=== PATIENT | male | born 1965 | race Two or more races ===

== ENCOUNTER 2016-07-02 09:30 | Inpatient (IN) | payer OTHER ==
[~2016-07-02] VITALS: Ht 182.9 cm; Wt 67.1 kg
[2016-09-06] VITALS (23 sets, daily range): BP systolic 85–117; BP diastolic 46–69; PULSE 84–114; RESP 8–29; Ht 182.9 cm; Wt 67.1 kg
[2016-09-06] MEDS ORDERED: TRAM-40 PO (06:55)
[2016-09-06] MEDS ORDERED: ALBU18HF INHALATION (06:55)
[2016-09-06] MEDS ORDERED: RANI150T5 PO (06:55)
[2016-09-06] MEDS ORDERED: SERT100T PO (06:55)
[2016-09-06] MEDS ORDERED: GABA300C PO (06:55)
[2016-09-06] MEDS ORDERED: BEN25 PO (06:55)
[2016-09-06] MEDS ORDERED: CEFAZOLIN 1 GM INJ ONE ×3 (07:00→16:52)
[2016-09-06] MEDS ORDERED: ROCURONIUM 50 MG INJ ONE (07:00)
[2016-09-06] MEDS ORDERED: PROPOFOL 200 MG INJ ONE (07:00)
[2016-09-06] MEDS ORDERED: GELATIN SIZE 100 SPONGE ONE ×2 (07:35→15:37)
[2016-09-06] MEDS ORDERED: THROMBIN 5000 UNIT VIAL ONE ×2 (07:36→15:37)
[2016-09-06] MEDS ORDERED: POLYMYXIN/BACITRACIN 1L IRRIG ONE ×2 (07:36→20:54)
[2016-09-06] MEDS ORDERED: LIDOCAINE 0.5%/EPI (MDV) 50 ML INJ ONE ×2 (07:40→15:37)
[2016-09-06] MEDS ORDERED: CEFAZOLIN 2 GM/50 ML (PMX) 50 ML IVPB ONE (08:00)
[2016-09-06] MEDS ORDERED: NS + KCL 20 MEQ 1,000 ML IV ONE (08:00)
--- NOTE | 2016-09-06 10:59 | PREOPHP ---
DATE OF ADMISSION: 09/06/2016 HISTORY OF PRESENT ILLNESS: The patient is a 50-year-old male with complaints of chronic neck and l ow back pain greater than neck pain. The patient has had chronic pain for many years, but this has worsened over the past few years. He has tried multiple nonoperative therapy without improvement. Patient's MRI showed degenerative disk disease and spondylosis with transitional L5 vertebral body a nd a grade I to II spondylolisthesis with severe nnea-xo-fqvi degeneration and foraminal stenosis at L4-5. The patient also has some lateral recess stenosis at L2-3 and L3-4 levels. The patient repo rts numbness in his feet as well as some pain in his thigh, but predominantly has low back pain. He denies any saddle anesthesia. Denies any focal weakness. The patient also had some cervical radic ular symptoms and some neck pain, but states that this is less compared to his low back pain. PAST MEDICAL HISTORY: Significant for depression and left knee subluxation. Denies any history of diabetes, gastrointestinal issues, renal disease, cardiac disease or pulmonary disease. ALLERGIES: NO KNOWN DRUG ALLERGIES. PAST SURGICAL HISTORY: Significant for appendectomy at age 9. MEDICATIONS: Patient's medications include: 1. Gabapentin. 2. Loratadine. 3. Tramadol 4. Ranitidine. REVIEW OF SYSTEMS: A 12-point review of systems performed. Pertinent positives and negatives liste d in history of present illness or below. CONSTITUTIONAL: The patient denies any fevers, chills or weight loss. The patient had previously h ad some weight loss but this has stabilized. HEMATOLOGIC: Denies any history of easy bruising or bleeding. All other systems reviewed and are n egative. PHYSICAL EXAMINATION: VITAL SIGNS: The patient's temperature 98.7, pulse 84, respirations 18, blood pressure 101/69, satu rating 99% on room air. GENERAL: The patient is well-developed, well-nourished but thin male lying in the hospital bed in n o acute distress. HEAD AND NECK: Normocephalic, atraumatic. He has a slight left Spurling sign and does not have a L hermitte sign. CARDIAC: Regular rate and rhythm. LUNGS: Clear to auscultation. ABDOMEN: Nontender, nondistended, soft. EXTREMITIES: No clubbing, cyanosis, edema. MUSCULOSKELETAL: The patient has some lower lumbar and lower thoracic tenderness. He has normal to ne and bulk. MOTOR: 5/5 bilateral upper and lower extremities. NEUROLOGIC: The patient is awake, alert, and oriented x3, fluent speech, follows commands readily a nd appropriately. He has 2+ deep tendon reflexes except for patella is 1+. He has no clonus, Neida nski, or Kirstin sign. He has intact sensation to light touch and pinprick. He has a normal gait. He has a positive left sign. ASSESSMENT AND PLAN: A 50-year-old male with lumbar spondylosis and spondylolisthesis. I discussed the signs, symptoms, physical exam, radiographic findings with him. This patient is to go to the [facility] today for L4-5 decompression and stabilization and possible L2-3 and L3-4 laminectomy. Dictated By: PARVIZ LUNA MD, LG/EBONIE Conf#: [id number] DID#: [id number]
[2016-09-06] MEDS ORDERED: MIDAZOLAM 1 MG/ML 2 ML INJ ONE (15:23)
[2016-09-06] MEDS ORDERED: PHENYLephrine (100 MCG/ML) 5ML SYG ONE ×4 (16:12→17:24)
[2016-09-06] MEDS ORDERED: DEXAMETHASONE 4 MG/ML 1 ML INJ ONE (16:53)
[2016-09-06] MEDS ORDERED: ONDANSETRON 4 MG INJ ONE ×2 (16:53→21:33)
[2016-09-06] MEDS ORDERED: FAMOTIDINE 20 MG INJ ONE (16:53)
[2016-09-06] MEDS ORDERED: FENTAnyl 50 MCG/ML VIAL ONE ×2 (17:11→22:11)
[2016-09-06] MEDS ORDERED: PHENYLephrine 20MG IN 250 ML 250 ML IV ONE (17:30)
[2016-09-06] MEDS ORDERED: VANCOMYCIN 1 GM INJ ONE (20:59)
[2016-09-06] MEDS ORDERED: ONDANSETRON 4 MG INJ IV PRN ×2 (21:00→22:00)
[2016-09-06] MEDS ORDERED: MEPERIDINE 25 MG INJ IV PRN (21:00)
[2016-09-06] MEDS ORDERED: HYDROmorphONE (0.2 MG/ML) 10ML SYG IV PRN (21:00)
[2016-09-06] MEDS ORDERED: HYDROmorphONE 2 MG/ML SYG ONE (21:30)
[2016-09-06] MEDS ORDERED: DIPHENHYDRAMINE 50 MG CAP PO PRN (22:00)
[2016-09-06] MEDS ORDERED: ZOLPIDEM 5 MG TAB PO PRN (22:00)
[2016-09-06] MEDS ORDERED: CEPASTAT LOZENGE MT PRN (22:00)
--- NOTE | 2016-09-06 22:19 | OPPN ---
Date/Time of Note Date/Time of Note DATE: 09/06/16 TIME: 22:11 Operative/Procedure Note Pre-Operative Diagnosis 1. L4-5 spondylolisthesis 2. 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 3. lumbar stenosis Post-Operative Diagnosis 1. L4-5 spondylolisthesis 2. 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 3. lumbar stenosis Procedure 1. L4-5 Kumar laminectomy 2. L2-3, L3-4 laminectomy and medial facetectomy and foraminotomy. 3. L4-5 posterior arthrodesis 4. L4-5 pedicl escrew instrumentation. 4. Use of frameless stereotactic navigation. 5. Use of microscope for intraoperative microdissection. Surgeon: PARVIZ LUNA MD Clinical Programmer: WYATT NI Anesthesiologist: NITESH RAY spondylolisthesis Implants/Grafts Orthofix Firebird pedicle screws and rods Estimated blood loss: 250 - 300 ml's Drains subfascial Hemovac Complications: None Anesthesia type: general PARVIZ LUNA MD Sep 06, 2016 22:19
[2016-09-06] MEDS ORDERED: DIPHENHYDRAMINE 50 MG INJ IV ONE (22:30)
[2016-09-06] MEDS: HYDROmorphONE (0.2 MG/ML) 10ML SYG IV PRN ×3 (22:36→22:59)
[2016-09-06] MEDS ORDERED: ALBUTEROL HFA 8 GM INHALER INH PRN (22:45)
--- NOTE | 2016-09-06 23:33 | RADRPT ---
PROCEDURE: Fluoroscopy services. CLINICAL INDICATION: Back pain. TECHNIQUE: Fluoroscopy services during the lumbar spine surgery. COMPARISON: None of record at the time of this interpretation. FINDINGS: Fluoroscopy services during the lumbar spine surgery. 6 intraoperative spot films were obtained at intermediate stages during this procedure and demonstrate localization, instrumentation and placemen t of bilateral transpedicular screw and gisella fixators in the lower lumbar spine. No fluoroscopy time is provided. IMPRESSION: Fluoroscopy services during the lumbar spine surgery. RPTAT: [facility] Physician Ileana Date Time Electronically viewed and signed by Physician Ileana on 09/06/2016 23:32 RS/
[2016-09-07] VITALS (9 sets, daily range): BP systolic 90–124; BP diastolic 58–77; PULSE 98–119; RESP 16–19
[2016-09-07] MEDS: SERTRALINE 100 MG TAB PO SCH ×3 (01:17→20:33)
[2016-09-07] MEDS: GABAPENTIN 300 MG CAP PO SCH ×4 (01:17→20:33)
[2016-09-07] MEDS: CEFAZOLIN 1 GM/50 ML (PMX) 50 ML IVPB SCH ×4 (01:18→18:32)
[2016-09-07] MEDS: DIAZEPAM 5 MG TAB PO PRN ×4 (01:22→19:44)
[2016-09-07] MEDS: SOD CHLORIDE 0.9% 1,000 ML IV SCH ×2 (01:30→09:01)
[2016-09-07] MEDS ORDERED: NALOXONE (0.4 MG/ML) INJ IV PRN (01:30)
[2016-09-07] MEDS: morphine 1 MG/ML 30 ML (PCA) IV SCH ×3 (01:46→23:36)
[2016-09-07 05:48] LABS: POTASSIUM 3.9 mmol/L (3.5-5.1)
[2016-09-07 05:50] LABS: CREATININE 0.75 mg/dl (0.61-1.24)
[2016-09-07 05:51] LABS: CALCIUM 8.6 mg/dl (8.4-10.2)
[2016-09-07 05:52] LABS: HEMATOCRIT 39.6 % (42.0-52.0); HEMOGLOBIN 13.3 g/dl (14.0-18.0); MEAN CORPUSCULAR HEMOGLOBIN 33.6 pg (29.0-33.0); MEAN CORPUSCULAR HGB CONC 33.6 g/dl (32.0-37.0); RED BLOOD COUNT 3.96 10^6/ul (4.70-6.10); WHITE BLOOD COUNT 13.3 10^3/ul (4.8-10.8)
[2016-09-07 05:53] LABS: BASOPHILS % 0.2 % (0.0-2.0); LYMPHOCYTES % 7.5 % (15.0-51.0); MEAN PLATELET VOLUME 11.2 fl (7.4-10.4); MONOCYTE # 0.7 10^3/ul (0.3-0.9); MONOCYTES % 5.2 % (0.0-11.0); NEUTROPHIL # 11.5 10^3/ul (1.6-7.5); NEUTROPHILS % 86.5 % (39.0-77.0); PLATELET COUNT 171 10^3/UL (140-440); RED CELL DISTRIBUTION WIDTH 12.1 % (11.5-14.5)
[2016-09-07] MEDS: DOCUSATE SODIUM 100 MG CAP PO SCH ×2 (08:48→20:33)
[2016-09-07] MEDS: FERROUS SULFATE (EC) 325 MG TAB PO SCH ×3 (08:49→20:33)
[2016-09-07] MEDS: HYDROCODONE/APAP (5/325) TAB PO PRN ×2 (09:27→16:37)
[2016-09-07] MEDS ORDERED: INFLUENZA VIRUS VACCINE 0.5 ML SYG IM* ONE (10:30)
--- NOTE | 2016-09-07 11:32 | QN ---
Documentation Comment [id number] Alejo MD Sep 07, 2016 11:32
--- NOTE | 2016-09-07 12:21 | CONS ---
DATE OF ADMISSION: 09/06/2016 DATE OF CONSULTATION: Thank you, Dr. Ruiz, for kindly asking me to see this patient in consultation. The patient is a 50-year-old male who has a history of chronic neck and low back pain. Patient has a history of degenerative disk disease and spondylosis, spondylolisthesis. The patient also has sev ere ldii-dc-ncew degeneration of foraminal stenosis at L4-L5. The patient has a lateral recess sten osis at L2-L3, L3-L4 level. The patient underwent L4-L5 laminectomy, L4-L5 ____ laminectomy L2-L3, L3-L4 laminectomies and medial fasciectomy and foraminectomy, and the L4-L5 posterior arthrodesis, and L4-L5 pedicle screw instrumentation. The patient is being seen post-procedure. PAST MEDICAL HISTORY: Arthritis, back pain. ALLERGY HISTORY: NEGATIVE. FAMILY HISTORY: Negative. SOCIAL HISTORY: Positive for smoking. MEDICATIONS AT HOME: Patient is on: 1. Albuterol. 2. Diphenhydramine. 3. Gabapentin. 4. Ranitidine. 5. Zoloft. 6. Tramadol. REVIEW OF SYSTEMS HEENT: Unremarkable. RESPIRATORY: Unremarkable. CARDIOVASCULAR: Unremarkable. ABDOMEN: Unremarkable. EXTREMITIES: No numbness, no tingling. CENTRAL NERVOUS SYSTEM: Unremarkable. PHYSICAL EXAMINATION: GENERAL: The patient is awake and alert. VITAL SIGNS: Stable. HEAD: Atraumatic, normocephalic. Pupils are equal, reactive to light. NECK: Supple. No JVD. LUNGS: Clear. CARDIOVASCULAR: S1, S2 are normal. ABDOMEN: Soft, nontender. Bowel sounds positive. No palpable mass or hepatosplenomegaly. No guar ding, rebound tenderness. EXTREMITIES: There is no cyanosis, clubbing, or edema. CENTRAL NERVOUS SYSTEM: The patient is awake and alert with no focal deficit. SKIN: The patient has surgical scar. The patient has surgical dressing in the lumbar area noted. LABORATORY DATA: WBC 13.3, hematocrit 39.6, platelet count is within normal limits, sodium 141, pot assium 3.9. IMPRESSION: 1. Patient has spondylosis, spondylolisthesis, status post laminectomy, status post laminectomy and is status post ____ and foraminectomy. 2. Leukocytosis. PLAN: To continue current treatment. MEDICATIONS: The patient is on: 1. Docusate sodium. 2. Iron sulfate. 3. Morphine. 4. Cefazolin. 5. Zoloft. 6. Gabapentin. 7. Albuterol. 8. [place]. 9. Benadryl. Laboratory data will be followed. SCD to the legs. Thank you, Dr. Ruiz, for kindly asking me to see this patient in medical consultation. Dictated By: EMMA MIXON MD BS/NTS Conf#: [id number] DID#: [id number]
--- NOTE | 2016-09-07 16:33 | PN ---
Date/Time of Note Date/Time of Note DATE: 09/07/16 TIME: 16:29 Assessment/Plan Lines/Catheters IV Catheter Type (from [facility]): Peripheral IV Walter in Place (from [facility]): Yes Assessment/Plan Chief Complaint/Hosp Course POD #1 s/p Lumbar fusion and decompression. Awaiting brace. Up with brace D/C Walter. Bowel program. SCDs. Problems: Subjective 24 Hr Interval Summary Patient stable. Reports incisional LBP. Denies weakness, numbness, fevers or chills. Exam/Review of Systems Vital Signs Vitals Vital Signs Date Time Temp Pulse Resp B/P Pulse Ox O2 Delivery O2 Flow Rate FiO2 09/07/16 08:16 98.5 105 19 99/58 98 09/07/16 08:00 Nasal Cannula 3.0 Intake and Output 09/06/16 09/06/16 09/07/16 15:00 23:00 07:00 Intake Total 2000 ml 1000 ml Output Total 1305 ml 2210 ml Balance 695 ml -1210 ml Exam Constitutional: alert, oriented, well developed Neurological: ANNEALING TORCH OPERATOR II-XII intact, nl mental status, nl speech, nl strength Skin: other (incision clean, dry and intact. no redness,swelling, drainage or tenderness. Drain in place.) Results Result Diagram: 09/07/165 09/07/16 0435 PARVIZ LUNA MD Sep 07, 2016 16:33
[2016-09-07] MEDS: KETOROLAC 30 MG INJ IV PRN (17:12)
--- NOTE | 2016-09-07 18:46 | OPR ---
DATE OF OPERATION: 09/06/2016 PREOPERATIVE DIAGNOSES: 1. L4-L5 spondylolisthesis. 2. L4-L5 spondylolysis. 3. Lumbar stenosis L2-L3, L3-L4. POSTOPERATIVE DIAGNOSES: 1. L4-L5 spondylolisthesis. 2. L4-L5 spondylolysis. 3. Lumbar stenosis L2-L3, L3-L4. PROCEDURES: 1. L4-L5 Kumar laminectomy. 2. L2-L3, L3-L4 laminectomy, medial facetectomy, and foraminotomy. 3. L4-L5 posterior arthrodesis. 4. L4-L5 pedicle screw instrumentation. 5. Use of frameless stereotactic navigation. 6. Use of intraoperative microscope for intraoperative microdissection. SURGEON: Dr. Parviz Ruiz. DYNAMO TENDER: Jenise Do PA-C ANESTHESIOLOGIST: Zack Lewis DO FINDINGS: Spondylolisthesis implant Orthofix Firebird pedicle screws and rods. ESTIMATED BLOOD LOSS: 300 mL. DRAINS PLACED: One subfascial SURESH. COMPLICATIONS: None. ANESTHESIA: General endotracheal. DISPOSITION: PACU. INDICATIONS: The patient is a 50-year-old male with chronic low back pain and lower extremity symptoms consistent with lumbar radiculopathy. The patient also has a grade I to II spondylolisthesis at L4-L5. The patient has a transitional L5 vertebra. The risks, benefits, and alternatives of surgical intervention were discussed with the patient who elected for surgery. PROCEDURE: The patient was brought to the OR. He was sedated, intubated, and anesthesia was successfully induced. A Walter catheter was placed. Sequential compression devices were placed. Perioperative antibiotics were given. The patient had electrophysiologic monitoring throughout the case, and baseline potentials were performed. The patient was placed in prone position on a Tanvir table. All extremities were checked for appropriate padding and positioning. Fluoroscopy was used to localize the initial incision. The patient was sterilely prepped and draped. After surgical time-out, the procedure commenced. A 10 blade knife was used to make an incision over L2 down to L5 spinous processes. Bovie electrocautery used to dissect through the subcutaneous tissue , fascia, and subperiosteal spinous processes and lamina to the medial facet joints at L2-L3 and at L4 and L5 laterally to the transverse processes. Self- retaining retractors were placed. At this point. The Brainlab frame was attached to the L5 spinous process and the Brainlab registered to 0.4 mm accuracy. The pedicle screws were then placed into the vertebral bodies with the following technique. The Brainlab was used to find the initial start point for entry into the pedicle and a high- speed drill was used to create a bur hole. Then, a drill was used to cannulate 3 mm into the vertebral body, under guidance of the Brainlab. The hole was then palpated with a ball-tipped probe and no evidence of breach was found. Next, the Brainlab probe was again placed into the hole to determine appropriate checked trajectory and a 45 tap was used 35 mm into the pedicle. Again, the hole was tapped and no evidence of breach was found and the Brainlab probe again used for appropriate orientation. The pedicle screw was advanced into the vertebral body. This was performed at bilateral L4 and L5 pedicles. The trajectory was based upon best anatomic localization for each pedicle screw , although fluoroscopy was used to confirm appropriate entry point. The screws were stimulated and the left L5 screw was measured at 19.6, and greater than 20 milliamps for the left L4 screw. The right L5 screw was also measured about 20 milliamps; however, there was reported stimulation on the screw at 6.4 milliamps. This seemed to be contrary to the trajectory seen on the Brainlab, but, nevertheless, the screw was removed and the hole was probed and there did not appear to be any evidence of breach. The fluoroscopy was obtained to assess, and the screw trajectory did not appear to enter the canal. Multiple probes were placed and stimulated, which again stimulated below threshold. The testing was then checked on screws that had already been placed and they also showed a lower threshold. Thus, it was unclear of the accuracy of the machine. The electrophysiologic monitoring was rechecked and the screws rechecked, and all screws, at this point, did not seem stimulate above 20 milliamps. Once the screws were in place, attention was turned to performing the decompression. The microscope was brought in for microdissection. A Kumar procedure laminectomy of the L4 lamina and spinous processes was performed which were loose due to spondylolysis. The superior aspect of L5 was also decorticated and ligament was removed. The fibrous tissue of the spondylolysis was removed with Kerrison rongeurs to try to free up the L4-L5 foramen. Once this was completed, and decompression was adequate L4-L5, decompression of the L2-L3 level was with bilateral hemilaminectomy superiorly at L2 and inferior aspect of L3 vertebral bodies, with removal of the ligament to decompress the foramen, as well as part of the medial facet. At this point, there appeared to be adequate decompression of the lateral recesses at these levels. Bone was harvested and then the high speed drill used to decorticate the posterior elements and then the bone graft was placed there. The screw heads were placed on the screws and rods were placed and screwed into the screw heads. Final tightening of the screws was performed. There no attempt at reduction of spondylolisthesis, given the severity of the spondylolisthesis and the complete loss of disk height. A Hemovac drain was tunneled on the incision and secured to skin. The retractors were removed and hemostasis obtained using bipolar electrocautery. The incision was then closed with 0 Vicryl sutures in the fascia, 2-0 interrupted Vicryl sutures in the subcutaneous tissue and a running 4-0 Monocryl suture. Dermabond was placed in the incision, allowed to dry, and a sterile dressing applied. Patient was taken off the table, extubated, and taken to recovery. Sponge, needle and cottonoid count reported correct at the end of the case. Electrophysiologic monitoring remained stable throughout the case. Dictated By: PARVIZ RUIZ MD, LG/EBONIE Conf#: [id number] DID#: [id number]
--- NOTE | 2016-09-07 20:29 | RADRPT ---
PROCEDURE: CT Lumbar Spine without contrast. CLINICAL INDICATION: Lumbar spine pain status post fusion. TECHNIQUE: The study was performed on a multislice multidetector CT scanner. Spiral axial 1 mm im ages were obtained through the lumbar spine without intravenous contrast. Sagittal and coronal refor mations were created from the raw axial data. The images were reviewed on a PACS workstation. RADIATION DOSE: CTDIvol: 11.9 mGyDLP: 382.8 mGy-cm COMPARISON: Intraoperative evaluation 09/06/2016 FINDINGS: There are 4 lumbar-type vertebral bodies with sacralization of the L5 vertebral body. There are pos toperative changes from posterior lumbar fusion at L4-5 with paired pedicle screws in the L4 and L5 vertebral bodies and associated paraspinal fusion rods. The screws are seen traversing the pedicles and the expected locations. There are postoperative changes from laminectomy at L4-5. There is 10 mm of anterolisthesis of L4 on L5. There is trace retrolisthesis of L1 on L2 and L2 on L3. The ve rtebral body heights are maintained. There are multilevel small Schmorl's nodes throughout the lowe r thoracic and lumbar spine with adjacent reactive changes. There are postoperative changes from de compressive laminectomy at L2-3. The marrow density is within normal limits. There is mild soft ti ssue swelling and subcutaneous emphysematous changes. There is a small epidural drain in place. Th ere is mild atherosclerotic calcification of the aorta and proximal iliac vessels. L1-L2: There is a 1 mm annular disc bulge without significant indentation on the ventral thecal sac . The thecal sac and lateral recesses are patent. There is mild bilateral facet spondylosis. Ther e is mild bilateral neural foraminal narrowing. L2-L3: There is a 2-3 mm annular disc bulge. The thecal sac measures 9-10 mm midline AP diameter. There is moderate narrowing of both lateral recesses. There is moderate bilateral neural foraminal narrowing. L3-L4: There is a 2-3 mm annular disc bulge. There is moderate bilateral facet spondylosis with bu ckling ligamentum flavum. The thecal sac measures 8.2 mm midline AP diameter. There is severe narr owing of both lateral recesses. There is a partial laminectomy in the inferior aspect of L3. There is moderate bilateral neural foraminal narrowing. L4-L5: There is grade 1 anterolisthesis of L4 on L5 status post fusion. The thecal sac is patent o wing to laminectomy at this level. The lateral recesses appear patent. There is severe bilateral n eural foraminal narrowing. L5-S1: No disc material is seen. The thecal sac and lateral recesses are patent. The neural karishma jaylin are patent. IMPRESSION: 1. Postoperative changes from posterior lumbar laminectomy and fusion at L4-5 with intact surgical hardware and epidural drain in place. There is a patent thecal sac at L4-5 due to the laminectomy wi th patent lateral recesses. 2. Partial laminectomy at the L2-3 with moderate narrowing of both lateral recesses and no signific ant central stenosis at this level. 3. Moderate spondylosis at L3-4 with mild narrowing of the cervical thecal sac and severe narrowing of both lateral recesses. 4. Multilevel facet spondylosis with severe narrowing of the bilateral L4-5 foramina. Other modera te foraminal narrowings as discussed above. 5. Multilevel Schmorl's nodes which may be related to Scheuermann's disease. RPTAT: HGAS .Mushtaq Carrillo MD, Date Time Electronically viewed and signed by .Mushtaq Carrillo MD, on 09/07/2016 20:29 .S/
[2016-09-08] MEDS: SOD CHLORIDE 0.9% 1,000 ML IV SCH ×3 (01:02→17:34)
[2016-09-08] MEDS: DIAZEPAM 5 MG TAB PO PRN (05:47)
[2016-09-08] MEDS: KETOROLAC 30 MG INJ IV PRN ×2 (05:48→18:09)
[2016-09-08 06:18] LABS: ALBUMIN 2.9 g/dl (3.3-4.9)
[2016-09-08 06:21] LABS: BILIRUBIN,INDIRECT 0.2 mg/dl (0-1.1); BILIRUBIN,TOTAL 0.2 mg/dl (0.2-1.3); CREATININE 0.78 mg/dl (0.61-1.24)
[2016-09-08 06:22] LABS: ALBUMIN/GLOBULIN RATIO 1.26; TOTAL PROTEIN 5.2 g/dl (6.1-8.1)
[2016-09-08 08:06] VITALS: BP 104/76; PULSE 96; RESP 16
[2016-09-08] MEDS: FERROUS SULFATE (EC) 325 MG TAB PO SCH ×3 (08:50→21:29)
[2016-09-08] MEDS: GABAPENTIN 300 MG CAP PO SCH ×3 (08:50→21:29)
[2016-09-08] MEDS: SERTRALINE 100 MG TAB PO SCH ×2 (08:50→21:29)
[2016-09-08] MEDS: DOCUSATE SODIUM 100 MG CAP PO SCH ×2 (08:50→21:29)
--- NOTE | 2016-09-08 10:20 | PN ---
Date/Time of Note Date/Time of Note DATE: 09/08/16 TIME: 10:16 Assessment/Plan Lines/Catheters IV Catheter Type (from [facility]rs[facility]): Peripheral IV Walter in Place (from [facility]): Yes Assessment/Plan Chief Complaint/Hosp Course POD #2 s/p Lumbar fusion and decompression. Stable. CT shows stable instrumentation. subfascial drain d/c'd. D/C STUDY ABROAD COORDINATOR. Pt/OT- rehab consult. Bowel program. SCDs. Problems: Subjective 24 Hr Interval Summary Patient improving. Denies radicular pain but hasn't been up today. Low back pain improving. Exam/Review of Systems Vital Signs Vitals Vital Signs Date Time Temp Pulse Resp B/P Pulse Ox O2 Delivery O2 Flow Rate FiO2 09/08/16 08:06 98.3 96 16 104/76 96 Room Air 09/07/16 08:00 3.0 Intake and Output 09/07/16 09/07/16 09/08/16 15:00 23:00 07:00 Intake Total 2185 ml 800 ml Output Total 1750 ml Balance 435 ml 800 ml Exam Constitutional: alert, oriented, well developed Drains subfascial drain D/C'd. Neurological: MID LEVEL BUSINESS ANALYST II-XII intact, DTR's symmetric, nl mental status, nl speech, nl strength Skin: other (incision C/D/I. No redness, swelling, drainage or dehiscence.) Results Result Diagram: 09/07/16 0435 09/08/16 0418 PARVIZ LUNA MD Sep 08, 2016 10:19
[2016-09-08] MEDS: HYDROCODONE/APAP (5/325) TAB PO PRN ×2 (12:54→17:18)
[2016-09-08 13:44] LABS: BASOPHILS % 0.3 % (0.0-2.0); CONDITION 1; EOSINOPHILS # 0.1 10^3/ul (0.0-0.5); EOSINOPHILS % 0.9 % (0.0-7.0); HEMATOCRIT 38.7 % (42.0-52.0); HEMOGLOBIN 12.9 g/dl (14.0-18.0); LH ANALYZER COMMENTS 1; LYMPHOCYTES # 2.1 10^3/ul (0.8-2.9); LYMPHOCYTES % 22.6 % (15.0-51.0); MEAN CORPUSCULAR HGB CONC 33.3 g/dl (32.0-37.0); MEAN CORPUSCULAR VOLUME 102.2 fl (82.0-101.0); MEAN PLATELET VOLUME 9.9 fl (7.4-10.4); MONOCYTES % 10.4 % (0.0-11.0); NEUTROPHIL # 6.2 10^3/ul (1.6-7.5); NEUTROPHILS % 65.8 % (39.0-77.0); PLATELET COUNT 149 10^3/UL (140-440); RED BLOOD COUNT 3.78 10^6/ul (4.70-6.10); UNCORRECTED WBC 9.4 10^3/ul (4.8-10.8); WHITE BLOOD COUNT 9.4 10^3/ul (4.8-10.8)
[2016-09-08 20:01] VITALS: BP 108/71; RESP 18
--- NOTE | 2016-09-08 22:25 | PN ---
Date/Time of Note Date/Time of Note DATE: 09/08/16 TIME: 22:23 Assessment/Plan VTE Prophylaxis VTE Prophylaxis Intervention: other Lines/Catheters IV Catheter Type (from Nrs): Peripheral IV Urinary Cath still in place: Yes Reason Cath still needed: other (indicate) Assessment/Plan Chief Complaint/Hosp Course IMPRESSION: 1. Patient has spondylosis, spondylolisthesis, status post laminectomy, status post laminectomy and is status post and foraminectomy. 2. Leukocytosis.better plan per neurosurgery ptot Problems: Subjective 24 Hr Interval Summary Cardiovascular: no complaints Gastrointestinal: no complaints Musculoskeletal: back pain (less) Neurologic: no complaints Exam/Review of Systems Vital Signs Vitals Vital Signs Date Time Temp Pulse Resp B/P Pulse Ox O2 Delivery O2 Flow Rate FiO2 09/08/16 20:01 98.6 97 18 108/71 95 09/08/16 08:06 Room Air 09/07/16 08:00 3.0 Intake and Output 09/07/16 09/07/16 09/08/16 15:00 23:00 07:00 Intake Total 2185 ml 800 ml Output Total 1750 ml Balance 435 ml 800 ml Exam Respiratory: clear to auscultation Cardiovascular: regular rate and rhythm Gastrointestinal: soft Musculoskeletal: nl extremities to inspection Extremities: normal pulses Neurological: No focal weakness Results Result Diagram: 09/08/16 0418 09/08/16 0418 Results 24 hrs Laboratory Tests Test 09/08/16 04:18 Alanine Aminotransferase (ALT/SGPT) 27 Albumin 2.9 L Albumin/Globulin Ratio 1.26 Alkaline Phosphatase 71 Anion Gap 13 Aspartate Amino Transf (AST/SGOT) 27 Basophils # 0.0 Basophils % 0.3 Blood Morphology Comment Blood Urea Nitrogen 11 Calcium Level 8.0 L Carbon Dioxide Level 32 H Chloride Level 103 Creatinine 0.78 Direct Bilirubin 0.00 Eosinophils # 0.1 Eosinophils % 0.9 Globulin 2.30 Glucose Level 95 # Hematocrit 38.7 L Hemoglobin 12.9 L Indirect Bilirubin 0.2 Lymphocytes # 2.1 Lymphocytes % 22.6 Mean Corpuscular Hemoglobin 34.0 H Mean Corpuscular Hemoglobin Concent 33.3 Mean Corpuscular Volume 102.2 H Mean Platelet Volume 9.9 Monocytes # 1.0 H Monocytes % 10.4 Neutrophils # 6.2 Neutrophils % 65.8 Nucleated Red Blood Cells # 0.0 Nucleated Red Blood Cells % 0.0 Platelet Count 149 Potassium Level 4.0 Red Blood Count 3.78 L Red Cell Distribution Width 13.0 Sodium Level 144 Total Bilirubin 0.2 Total Protein 5.2 L White Blood Count 9.4 # Medications Medications Current Medications Acetaminophen/ Hydrocodone Bitart (Freedom (5/325)) 1 tab Q4H PRN PO PAIN LEVEL 1 -5 Last administered on 09/07/16 16:37; Admin Dose 1 TAB; Start 09/06/16 at 22:00 Zolpidem Tartrate (Ambien) 5 mg HS PRN PO INSOMNIA; Start 09/06/16 at 22:00 Ondansetron HCl (Zofran Inj) 4 mg Q6H PRN IV NAUSEA AND/OR VOMITING; Start 09/06 at 22:00 Docusate Sodium (Colace) 100 mg BID PO Last administered on 09/08/16 21:29; Admin Dose 100 MG; Start 09/07/16 at 09:00 Ferrous Sulfate (Ferrous Sulfate (Ec)) 325 mg TID PO Last administered on 21:29; Admin Dose 325 MG; Start 09/07/16 at 09:00 Diazepam (Valium) 5 mg Q4H PRN PO MUSCLE SPASMS Last administered on 09/08/16 05:47; Admin Dose 5 MG; Start 09/06/16 at 22:00 Phenol (Cepastat Lozenge) 1 lozenge PRN PRN MT SORE THROAT; Start 09/06/16 at 22 :00 Diphenhydramine HCl (Benadryl) 50 mg Q6H PRN PO PRURITUS; Start 09/06/16 at 22: 00 Sertraline HCl (Zoloft) 100 mg BID PO Last administered on 09/08/16 21:29; Admin Dose 100 MG; Start 09/06/16 at 23:00 Gabapentin (Neurontin) 300 mg TID PO Last administered on 09/08/16 21:29; Admin Dose 300 MG; Start 09/06/16 at 23:00 Naloxone HCl 0.2 mg 0.2 mg Q2M PRN IV RR 8 BREATHS/MIN OR LESS; Start 09/07/16 at 01:30 Sodium Chloride (NS) 1,000 ml @ 85 mls/hr [id number] IV Last administered on 17:34; Admin Dose 85 MLS/HR; Start 09/07/16 at 01:30 Ketorolac Tromethamine (Toradol) 30 mg Q6H PRN IV PAIN Last administered on 09/08 18:09; Admin Dose 30 MG; Start 09/07/16 at 17:00; Stop 09/10/16 at 16:59 Acetaminophen/ Hydrocodone Bitart (Freedom (5/325)) 2 tab Q4H PRN PO PAIN LEVEL 7 -10 Last administered on 09/08/16 17:18; Admin Dose 2 TAB; Start 09/08/16 at 10: 30 EMMA MIXON MD Sep 08, 2016 22:25
[2016-09-09] MEDS: HYDROCODONE/APAP (5/325) TAB PO PRN ×4 (02:00→20:06)
--- NOTE | 2016-09-09 08:04 | PN ---
Date/Time of Note Date/Time of Note DATE: 09/09/16 TIME: 08:01 Assessment/Plan Lines/Catheters IV Catheter Type (from Nrsg): Peripheral IV Walter in Place (from Nrsg): Yes Assessment/Plan Chief Complaint/Hosp Course POD #3 s/p Lumbar fusion and decompression. Stable. PT/OT- wants to go to rehab but may need SNIF if not candidate as appears stable for D/C today or tomorrow. Bowel program. SCDs. Problems: Subjective 24 Hr Interval Summary Patient reports mostly upper thigh, hip discomfort, LBP ok. Does nto report radicular type LE pain. Denies fevers, chills. Tolerating PO. Voiding. Exam/Review of Systems Vital Signs Vitals Vital Signs Date Time Temp Pulse Resp B/P Pulse Ox O2 Delivery O2 Flow Rate FiO2 09/08/16 20:01 98.6 97 18 108/71 95 09/08/16 08:06 Room Air 09/07/16 08:00 3.0 Intake and Output 09/08/16 09/08/16 09/09/16 15:00 23:00 07:00 Intake Total 980 ml 1984 ml Output Total 1600 ml 1050 ml Balance -620 ml 934 ml Exam Constitutional: alert, oriented, well developed Neurological: ENVIRONMENTAL WEB CRAWLER II-XII intact, nl mental status, nl speech Skin: other (incision C/D/I.) Results Result Diagram: 09/08/16 0418 09/08/16 0418 PARVIZ LUNA MD Sep 09, 2016 08:04
[2016-09-09] MEDS: DOCUSATE SODIUM 100 MG CAP PO SCH ×2 (09:24→20:07)
[2016-09-09] MEDS: SERTRALINE 100 MG TAB PO SCH ×2 (09:24→20:07)
[2016-09-09] MEDS: GABAPENTIN 300 MG CAP PO SCH ×3 (09:24→20:07)
[2016-09-09] MEDS: FERROUS SULFATE (EC) 325 MG TAB PO SCH ×3 (09:24→20:06)
[2016-09-09 09:31] VITALS: BP 105/72; RESP 16
[2016-09-09] MEDS: SOD CHLORIDE 0.9% 1,000 ML IV SCH ×2 (12:20→23:33)
[2016-09-09 20:16] VITALS: BP 109/76; RESP 16
--- NOTE | 2016-09-09 22:12 | PN ---
Date/Time of Note Date/Time of Note DATE: 09/09/16 TIME: 22:11 Assessment/Plan VTE Prophylaxis VTE Prophylaxis Intervention: other Lines/Catheters IV [facility]from [facility] Saline Lock Urinary Cath still in place: No Assessment/Plan Chief Complaint/Hosp Course IMPRESSION: 1. Patient has spondylosis, spondylolisthesis, status post laminectomy, status post laminectomy and is status post and foraminectomy. 2. Leukocytosis.better 3 lumber fusion plan per neurosurgery ptot Problems: Subjective 24 Hr Interval Summary Cardiovascular: no complaints Gastrointestinal: no complaints Musculoskeletal: back pain (+) Exam/Review of Systems Vital Signs Vitals Vital Signs Date Time Temp Pulse Resp B/P Pulse Ox O2 Delivery O2 Flow Rate FiO2 09/09/16 20:16 98.6 95 16 109/76 96 09/08/16 08:06 Room Air 09/07/16 08:00 3.0 Intake and Output 09/08/16 09/08/16 09/09/16 15:00 23:00 07:00 Intake Total 980 ml 1984 ml Output Total 1600 ml 1050 ml Balance -620 ml 934 ml Exam Respiratory: clear to auscultation Cardiovascular: regular rate and rhythm Gastrointestinal: soft Musculoskeletal: nl extremities to inspection Extremities: normal pulses Results Result Diagram: 09/08/16 0418 09/08/16 0418 Medications Medications Current Medications Acetaminophen/ Hydrocodone Bitart ([place] (5/325)) 1 tab Q4H PRN PO PAIN LEVEL 1 -5 Last administered on 09/07/16 16:37; Admin Dose 1 TAB; Start 09/06/16 at 22:00 Zolpidem Tartrate (Ambien) 5 mg HS PRN PO INSOMNIA; Start 09/06/16 at 22:00 Ondansetron HCl (Zofran Inj) 4 mg Q6H PRN IV NAUSEA AND/OR VOMITING; Start 09/06 at 22:00 Docusate Sodium (Colace) 100 mg BID PO Last administered on 09/09/16 20:07; Admin Dose 100 MG; Start 09/07/16 at 09:00 Ferrous Sulfate (Ferrous Sulfate (Ec)) 325 mg TID PO Last administered on 20:06; Admin Dose 325 MG; Start 09/07/16 at 09:00 Diazepam (Valium) 5 mg Q4H PRN PO MUSCLE SPASMS Last administered on 09/08/16 05:47; Admin Dose 5 MG; Start 09/06/16 at 22:00 Phenol (Cepastat Lozenge) 1 lozenge PRN PRN MT SORE THROAT; Start 09/06/16 at 22 :00 Diphenhydramine HCl (Benadryl) 50 mg Q6H PRN PO PRURITUS; Start 09/06/16 at 22: 00 Sertraline HCl (Zoloft) 100 mg BID PO Last administered on 09/09/16 20:07; Admin Dose 100 MG; Start 09/06/16 at 23:00 Gabapentin (Neurontin) 300 mg TID PO Last administered on 09/09/16 20:07; Admin Dose 300 MG; Start 09/06/16 at 23:00 Naloxone HCl 0.2 mg 0.2 mg Q2M PRN IV RR 8 BREATHS/MIN OR LESS; Start 09/07/16 at 01:30 Sodium Chloride (NS) 1,000 ml @ 85 mls/hr [id number] IV Last administered on 17:34; Admin Dose 85 MLS/HR; Start 09/07/16 at 01:30 Ketorolac Tromethamine (Toradol) 30 mg Q6H PRN IV PAIN Last administered on 09/08 18:09; Admin Dose 30 MG; Start 09/07/16 at 17:00; Stop 09/10/16 at 16:59 Acetaminophen/ Hydrocodone Bitart ([place]arth[place] (5/325)) 2 tab Q4H PRN PO PAIN LEVEL 7 -10 Last administered on 09/09/16 20:06; Admin Dose 2 TAB; Start 09/08/16 at 10: 30 EMMA MIXON MD Sep 09, 2016 22:12
[2016-09-10] MEDS: HYDROCODONE/APAP (5/325) TAB PO PRN ×4 (06:56→21:57)
[2016-09-10 08:03] VITALS: BP 107/68; RESP 16
[2016-09-10] MEDS: DOCUSATE SODIUM 100 MG CAP PO SCH ×2 (09:09→21:15)
[2016-09-10] MEDS: FERROUS SULFATE (EC) 325 MG TAB PO SCH ×3 (09:09→21:00)
[2016-09-10] MEDS: GABAPENTIN 300 MG CAP PO SCH ×3 (09:09→21:15)
[2016-09-10] MEDS: SERTRALINE 100 MG TAB PO SCH ×2 (09:09→21:15)
[2016-09-10] MEDS: DIAZEPAM 5 MG TAB PO PRN ×2 (09:15→18:49)
[2016-09-10] MEDS: SOD CHLORIDE 0.9% 1,000 ML IV SCH ×2 (11:52→23:38)
--- NOTE | 2016-09-10 14:38 | PN ---
Date/Time of Note Date/Time of Note DATE: 09/10/16 TIME: 14:37 Assessment/Plan VTE Prophylaxis VTE Prophylaxis Intervention: other Lines/Catheters IV [facility] Saline Lock Urinary Cath still in place: No Assessment/Plan Chief Complaint/Hosp Course IMPRESSION: 1. Patient has spondylosis, spondylolisthesis, status post laminectomy, status post laminectomy and is status post and foraminectomy. 2. Leukocytosis.better 3 lumber fusion plan per neurosurgery ptot will need snf Problems: Subjective 24 Hr Interval Summary Subjective hx not possible: other (back pain+ will need snf) Respiratory: no complaints Cardiovascular: no complaints Gastrointestinal: no complaints Genitourinary: no complaints Exam/Review of Systems Vital Signs Vitals Vital Signs Date Time Temp Pulse Resp B/P Pulse Ox O2 Delivery O2 Flow Rate FiO2 09/10/16 08:03 98.8 95 16 107/68 96 09/08/16 08:06 Room Air 09/07/16 08:00 3.0 Intake and Output 09/09/16 09/09/16 09/10/16 14:59 22:59 06:59 Intake Total 1050 ml 1200 ml Output Total 1150 ml 1100 ml Balance -100 ml 100 ml Exam Neck: supple Respiratory: clear to auscultation Cardiovascular: regular rate and rhythm Gastrointestinal: soft Musculoskeletal: nl extremities to inspection Extremities: normal pulses Results Result Diagram: 09/08/16 0418 09/08/16 0418 Medications Medications Current Medications Acetaminophen/ Hydrocodone Bitart ([place] (5/325)) 1 tab Q4H PRN PO PAIN LEVEL 1 -5 Last administered on 09/07/16 16:37; Admin Dose 1 TAB; Start 09/06/16 at 22:00 Zolpidem Tartrate (Ambien) 5 mg HS PRN PO INSOMNIA; Start 09/06/16 at 22:00 Ondansetron HCl (Zofran Inj) 4 mg Q6H PRN IV NAUSEA AND/OR VOMITING; Start 09/06 at 22:00 Docusate Sodium (Colace) 100 mg BID PO Last administered on 09/10/16 09:09; Admin Dose 100 MG; Start 09/07/16 at 09:00 Ferrous Sulfate (Ferrous Sulfate (Ec)) 325 mg TID PO Last administered on 14:15; Admin Dose 325 MG; Start 09/07/16 at 09:00 Diazepam (Valium) 5 mg Q4H PRN PO MUSCLE SPASMS Last administered on 09/10/16 09:15; Admin Dose 5 MG; Start 09/06/16 at 22:00 Phenol (Cepastat Lozenge) 1 lozenge PRN PRN MT SORE THROAT; Start 09/06/16 at 22 :00 Diphenhydramine HCl (Benadryl) 50 mg Q6H PRN PO PRURITUS; Start 09/06/16 at 22: 00 Sertraline HCl (Zoloft) 100 mg BID PO Last administered on 09/10/16 09:09; Admin Dose 100 MG; Start 09/06/16 at 23:00 Gabapentin (Neurontin) 300 mg TID PO Last administered on 09/10/16 14:15; Admin Dose 300 MG; Start 09/06/16 at 23:00 Naloxone HCl 0.2 mg 0.2 mg Q2M PRN IV RR 8 BREATHS/MIN OR LESS; Start 09/07/16 at 01:30 Sodium Chloride (NS) 1,000 ml @ 85 mls/hr [id number] IV Last administered on 17:34; Admin Dose 85 MLS/HR; Start 09/07/16 at 01:30 Ketorolac Tromethamine (Toradol) 30 mg Q6H PRN IV PAIN Last administered on 09/08 18:09; Admin Dose 30 MG; Start 09/07/16 at 17:00; Stop 09/10/16 at 16:59 Acetaminophen/ Hydrocodone Bitart ([place] (5/325)) 2 tab Q4H PRN PO PAIN LEVEL 7 -10 Last administered on 09/10/16 12:06; Admin Dose 2 TAB; Start 09/08/16 at 10: 30 EMMA MIXON MD Sep 10, 2016 14:38
--- NOTE | 2016-09-10 18:54 | PN ---
Date/Time of Note Date/Time of Note DATE: 09/10/16 TIME: 18:52 Assessment/Plan Lines/Catheters IV Catheter Type (from Nrsg): Saline Lock Walter in Place (from Nrsg): No Assessment/Plan Chief Complaint/Hosp Course POD #4 s/p Lumbar fusion and decompression. c/o LBP and LLE but not clearly in a radicular distribution. CT did not show any major issues. Cont. pain control; will give some steroids. PT/OT- wants to go to rehab but may need SNIF if not candidate as appears stable for D/C tomorrow. Bowel program. SCDs. Problems: Subjective 24 Hr Interval Summary Patient reports LLE pain with ambulation. Not in a specific distribution and states involves entire. Denies weakness. Denies fever or chills. Denies bowel or bladder issues. Exam/Review of Systems Vital Signs Vitals Vital Signs Date Time Temp Pulse Resp B/P Pulse Ox O2 Delivery O2 Flow Rate FiO2 09/10/16 08:03 98.8 95 16 107/68 96 09/08/16 08:06 Room Air 09/07/16 08:00 3.0 Intake and Output 09/09/16 09/09/16 09/10/16 15:00 23:00 07:00 Intake Total 1050 ml 1200 ml Output Total 1150 ml 1100 ml Balance -100 ml 100 ml Exam Constitutional: alert, oriented Psych: no complaints Neurological: ROUTE DRIVER SALESPERSON II-XII intact, nl mental status, nl speech, nl strength Results Result Diagram: 09/08/16 0418 09/08/16 0418 PARVIZ LUNA MD Sep 10, 2016 18:54
[2016-09-10] MEDS: DEXAMETHASONE 4 MG/ML 1 ML INJ IV SCH (19:41)
[2016-09-10 19:50] VITALS: BP 109/68; RESP 18
[2016-09-11] MEDS: DEXAMETHASONE 4 MG/ML 1 ML INJ IV SCH ×4 (00:23→19:12)
[2016-09-11] MEDS: HYDROCODONE/APAP (5/325) TAB PO PRN ×4 (02:07→21:00)
[2016-09-11] MEDS: PANTOPRAZOLE (EC) 40 MG TAB PO SCH (06:14)
[2016-09-11 08:12] VITALS: BP 103/60; RESP 17
[2016-09-11] MEDS: FERROUS SULFATE (EC) 325 MG TAB PO SCH ×3 (09:36→20:54)
[2016-09-11] MEDS: GABAPENTIN 300 MG CAP PO SCH ×3 (09:36→20:54)
[2016-09-11] MEDS: DOCUSATE SODIUM 100 MG CAP PO SCH ×2 (09:36→20:54)
[2016-09-11] MEDS: SERTRALINE 100 MG TAB PO SCH ×2 (09:36→20:54)
[2016-09-11] MEDS: SOD CHLORIDE 0.9% 1,000 ML IV SCH ×2 (11:24→22:50)
--- NOTE | 2016-09-11 18:11 | PN ---
Date/Time of Note Date/Time of Note DATE: 09/11/16 TIME: 18:08 Assessment/Plan Lines/Catheters IV Catheter Type (from Nrsg): Saline Lock Walter in Place (from Nrs): No Assessment/Plan Chief Complaint/Hosp Course POD #5 s/p Lumbar fusion and decompression. Patients pain improved. Ambulating without obvious discomfort and took stairs. Eating, voiding. No fever. PT/OT- Believe patient can go home tomorrow, does not have care needs for SNIF or rehab. Home health evaluation. Bowel program. SCDs. Problems: Subjective 24 Hr Interval Summary Patient appears comfortable and seen ambulating without apparent discomfort. Denies fevers, chills, weakness. Exam/Review of Systems Vital Signs Vitals Vital Signs Date Time Temp Pulse Resp B/P Pulse Ox O2 Delivery O2 Flow Rate FiO2 09/11/16 08:12 98.1 83 17 103/60 95 09/08/16 08:06 Room Air 09/07/16 08:00 3.0 Intake and Output 09/10/16 09/10/16 09/11/16 15:00 23:00 07:00 Intake Total 1180 ml 750 ml Output Total 300 ml 950 ml Balance 880 ml -200 ml Exam Constitutional: alert, oriented, well developed Neurological: KINDERGARTEN TEACHER ASSISTANT II-XII intact, nl mental status, nl strength Results Result Diagram: 09/08/16 0418 09/08/16 0418 PARVIZ LUNA MD Sep 11, 2016 18:11
--- NOTE | 2016-09-11 18:13 | PN ---
Date/Time of Note Date/Time of Note DATE: 09/11/16 TIME: 18:12 Assessment/Plan VTE Prophylaxis VTE Prophylaxis Intervention: other Lines/Catheters IV Catheter Type (from [facility]): Saline Lock Urinary Cath still in place: No Assessment/Plan Chief Complaint/Hosp Course IMPRESSION: 1. Patient has spondylosis, spondylolisthesis, status post laminectomy, status post laminectomy and is status post and foraminectomy. 2. Leukocytosis.better 3 lumber fusion plan per neurosurgery ptot will need snf but walking now w walker Problems: Subjective 24 Hr Interval Summary Subjective hx not possible: other (walking w walker) Respiratory: no complaints Cardiovascular: no complaints Musculoskeletal: back pain (+) Exam/Review of Systems Vital Signs Vitals Vital Signs Date Time Temp Pulse Resp B/P Pulse Ox O2 Delivery O2 Flow Rate FiO2 09/11/16 08:12 98.1 83 17 103/60 95 09/08/16 08:06 Room Air 09/07/16 08:00 3.0 Intake and Output 09/10/16 09/10/16 09/11/16 15:00 23:00 07:00 Intake Total 1180 ml 750 ml Output Total 300 ml 950 ml Balance 880 ml -200 ml Exam Respiratory: clear to auscultation Cardiovascular: regular rate and rhythm Musculoskeletal: nl extremities to inspection Extremities: No edema Neurological: HYDROPULPER II-XII intact, nl mental status, No focal weakness Results Result Diagram: 09/08/16 0418 09/08/16 0418 Medications Medications Current Medications Acetaminophen/ Hydrocodone Bitart ([place] (5/325)) 1 tab Q4H PRN PO PAIN LEVEL 1 -5 Last administered on 09/07/16 16:37; Admin Dose 1 TAB; Start 09/06/16 at 22:00 Zolpidem Tartrate (Ambien) 5 mg HS PRN PO INSOMNIA; Start 09/06/16 at 22:00 Ondansetron HCl (Zofran Inj) 4 mg Q6H PRN IV NAUSEA AND/OR VOMITING; Start 09/06 at 22:00 Docusate Sodium (Colace) 100 mg BID PO Last administered on 09/11/16 09:36; Admin Dose 100 MG; Start 09/07/16 at 09:00 Ferrous Sulfate (Ferrous Sulfate (Ec)) 325 mg TID PO Last administered on 13:08; Admin Dose 325 MG; Start 09/07/16 at 09:00 Diazepam (Valium) 5 mg Q4H PRN PO MUSCLE SPASMS Last administered on 09/10/16 18:49; Admin Dose 5 MG; Start 09/06/16 at 22:00 Phenol (Cepastat Lozenge) 1 lozenge PRN PRN MT SORE THROAT; Start 09/06/16 at 22 :00 Diphenhydramine HCl (Benadryl) 50 mg Q6H PRN PO PRURITUS; Start 09/06/16 at 22: 00 Sertraline HCl (Zoloft) 100 mg BID PO Last administered on 09/11/16 09:36; Admin Dose 100 MG; Start 09/06/16 at 23:00 Gabapentin (Neurontin) 300 mg TID PO Last administered on 09/11/16 13:08; Admin Dose 300 MG; Start 09/06/16 at 23:00 Naloxone HCl 0.2 mg 0.2 mg Q2M PRN IV RR 8 BREATHS/MIN OR LESS; Start 09/07/16 at 01:30 Sodium Chloride (NS) 1,000 ml @ 85 mls/hr [id number] IV Last administered on 17:34; Admin Dose 85 MLS/HR; Start 09/07/16 at 01:30 Acetaminophen/ Hydrocodone Bitart ([place] (5/325)) 2 tab Q4H PRN PO PAIN LEVEL 7 -10 Last administered on 09/11/16 16:27; Admin Dose 2 TAB; Start 09/08/16 at 10: 30 Dexamethasone (Decadron) 4 mg Q6 IV Last administered on 09/11/16 13:08; Admin Dose 4 MG; Start 09/10/16 at 19:00 Pantoprazole (Protonix Tab) 40 mg DAILY@06 PO Last administered on 09/11/16 06: 14; Admin Dose 40 MG; Start 09/11/16 at 06:00 EMMA MIXON MD Sep 11, 2016 18:13
[2016-09-11 19:00] VITALS: BP 122/60; RESP 19
[2016-09-12] MEDS: DEXAMETHASONE 4 MG/ML 1 ML INJ IV SCH ×2 (00:44→06:00)
[2016-09-12] MEDS: PANTOPRAZOLE (EC) 40 MG TAB PO SCH (04:32)
[2016-09-12] MEDS: HYDROCODONE/APAP (5/325) TAB PO PRN (04:32)
--- NOTE | 2016-09-12 07:45 | PDOCDIS ---
Discharge Instructions DIAGNOSIS Discharge Diagnosis: 1. lumbar laminectomy and fusion CONDITION Patient Condition: Good HOME CARE INSTRUCTIONS: Diet Instructions: Regular ACTIVITY: Activity Restrictions: Slowly Increase Activity Rest between Activity Avoid heavy lifting No Sexual Activity Do not Drive Do not operate Machinery Do not operate Power Tool Avoid Heavy Housework Bathing Restrictions: Shower FOLLOW UP/APPOINTMENTS Appointments call office [phone] to set up appointment in 2 weeks SCHOOL/WORK RELEASE School/Work Release Comment: will decide once seen in office. PARVIZ LUNA MD Sep 12, 2016 07:45
[2016-09-12] MEDS ORDERED: DIAZ5TAB4 PO (07:47)
[2016-09-12] MEDS ORDERED: MED4DP PO (07:48)
[2016-09-12] MEDS ORDERED: HYDR-902 PO (07:48)
[2016-09-12] MEDS ORDERED: DOCU-144 PO (07:49)
[2016-09-12 08:12] VITALS: BP 107/71; RESP 18
--- NOTE | 2016-09-12 08:14 | PN ---
Date/Time of Note Date/Time of Note DATE: 09/12/16 TIME: 08:10 Assessment/Plan Lines/Catheters IV Catheter Type (from Nrsg): Saline Lock Walter in Place (from Nrsg): No Assessment/Plan Chief Complaint/Hosp Course POD #6 s/p Lumbar fusion and decompression. Patient discharged home. Spent 15 minutes on phone with [facility] preschool assistant teacher answering questions and explaining d/c instructions. To follow-up in 2 weeks. Patient expressed understanding and agreement with this plan of care. Problems: Subjective 24 Hr Interval Summary Patient okay to go home. Still has some LLE pain mostly with standing, comes and goes. Denies fevers, chills, weakness, B/b issues. Exam/Review of Systems Vital Signs Vitals Vital Signs Date Time Temp Pulse Resp B/P Pulse Ox O2 Delivery O2 Flow Rate FiO2 09/11/16 19:00 98.0 91 19 122/60 95 09/08/16 08:06 Room Air Intake and Output 09/11/16 09/11/16 09/12/16 15:00 23:00 07:00 Intake Total 1200 ml 550 ml Output Total 750 ml Balance 1200 ml -200 ml Exam Constitutional: alert, oriented, well developed Neurological: SENIOR PACKAGING ENGINEER II-XII intact, nl mental status, nl speech, nl strength Skin: other (incision C/D/I.) Results Result Diagram: 09/08/16 0418 09/08/16 0418 PARVIZ LUNA MD Sep 12, 2016 08:13
[2016-09-12] MEDS: GABAPENTIN 300 MG CAP PO SCH (09:07)
[2016-09-12] MEDS: SERTRALINE 100 MG TAB PO SCH (09:07)
[2016-09-12] MEDS: DOCUSATE SODIUM 100 MG CAP PO SCH (09:07)
[2016-09-12] MEDS: FERROUS SULFATE (EC) 325 MG TAB PO SCH (09:07)
== END 2016-09-12 13:30 | disposition home health service (06) | DRG 460 ==
LOC: REC 09-06 05:40 → MS1 09-07 00:42
PROVIDERS: ADMIT Neurological Surgery; ATTEND Neurological Surgery
PROC: 01NB0ZZ Release Lumbar Nerve, Open Approach (ICD-10-PCS; 2016-09-06)
PROC: 8E0WXBZ Computer Assisted Procedure of Trunk Region (ICD-10-PCS; 2016-09-06)
PROC: 0SG0071 Fusion of Lumbar Vertebral Joint with Autologous Tissue Substitute, Posterior Approach, Posterior Column, Open Approach (ICD-10-PCS; principal; 2016-09-06 08:00)
DX: M43.16 Spondylolisthesis, lumbar region (principal); D72.829 Elevated white blood cell count, unspecified; G89.29 Other chronic pain; M54.2 Cervicalgia; M47.20 Other spondylosis with radiculopathy, site unspecified
CPT/HCPCS: 72110; 72131; 80048; 80053; 85025; 86850; 86900; 86901; 86920; 87086; 90686; 97116; 97162; 97165; 97530; J0690; J1100; J1170; J1200; J1644; J1885; J2250; J2270; J2370; J2405; J3010; J3370; J3480; J7030; L0639

== ENCOUNTER 2018-04-10 23:34 | Emergency (ER) | END 2018-04-11 04:39 | disposition left against medical advice (07) ==